=== PATIENT | female | born 1965 ===

== ENCOUNTER 2019-04-02 11:55 | Day surgery (SDC) | payer BC ==
[~2019-04-02 11:55] MED LIST: IOPIDINE OU ONE; MYDRIACYL OU ONE; NEOFRIN OU ONE
[2019-04-02] MEDS ORDERED: IOPIDINE ONE (11:58)
[2019-04-02] MEDS ORDERED: NEOFRIN ONE (11:58)
[2019-04-02] MEDS ORDERED: MYDRIACYL ONE (11:59)
[2019-04-02] MEDS ORDERED: NEOFRIN OU ONE (12:25)
[2019-04-02] MEDS ORDERED: MYDRIACYL OU ONE (12:25)
[2019-04-02] MEDS ORDERED: IOPIDINE OU ONE ×2 (12:25→12:56)
[2019-04-02 12:36] VITALS: BP 137/73
== END 2019-04-02 13:02 | disposition home or self-care (01) ==
LOC: EDBD 11:55 → OR 11:55
PROVIDERS: ATTEND Ophthalmology
DX: H26.492 Other secondary cataract, left eye (principal); H26.491 Other secondary cataract, right eye; K21.9 Gastro-esophageal reflux disease without esophagitis; M19.90 Unspecified osteoarthritis, unspecified site; Z79.899 Other long term (current) drug therapy; Z88.6 Allergy status to analgesic agent; Z91.040 Latex allergy status; Z88.8 Allergy status to other drugs, medicaments and biological substances; Z98.49 Cataract extraction status, unspecified eye; Z90.710 Acquired absence of both cervix and uterus